=== PATIENT | male | born 1970 | race Caucasian/White ===

== ENCOUNTER 2024-06-12 14:25 | Emergency (ER) | payer BC, SELFPAY ==
[2024-06-12 14:33] VITALS: BP 153/94
--- NOTE | 2024-06-12 14:35 | ED.GENMED ---
ED Provider Triage
-
Patient seen by provider in Triage?: Seen in Triage
Attestation: A medical screening examination has been initiated by a qualified medical provider. Based on the assessment performed at this time, it has been determined that an emergent medical condition may exist and the patient has been informed
that further medical evaluation and possible additional diagnostic testing may be needed.
HPI: 53-year-old male 11 AM today developed left side abdominal pain that now radiates down into the left groin. And also the left flank. Feels nauseous but has not vomited. Denies fever or chills.
Pain now 12/15. Took Aleve at 11 a.m
GENERAL: Alert , in no apparent distress
EYE: No visual abnormalities.
NECK: Trachea midline
ENT: No visible abnormalities.
LUNGS: No acute respiratory distress
NEUROLOGICAL: Alert and oriented
SKIN: Skin intact. No visible changes.
MUSCULOSKELETAL: Moving extremities normally
PSYCH: Normal and appropriate interaction.
This is a medical evaluation conducted in person to initiate diagnostic evaluation and provide initial therapeutics. Please see further documentation by the treating clinician.
History of Present Illness
General
Chief Complaint: Abdominal Pain
Source: patient and spouse
Exam Limitations: none
Time Seen by Provider: 06/12/24 15:30
Nursing documentation reviewed up to this point in time: agreed with
History of Present Illness
History of Present Illness:
53-year-old male hx HTN, IBS states 11 AM today developed left side abdominal pain that now radiates down into the left groin. And also the left flank. Feels nauseous but has not vomited. Denies fever or chills.
Pain now 12/15. Took Aleve at 11 a.m
Past History
Past History
ED Past Medical History: HTN and Other (IBS)
ED Past Surgical History: None
Social History
Tobacco: Non-smoker
Alcohol: Occasional
Personal:
Review of Systems
Review of Systems
Allergies reviewed?: Yes
All Other Systems: ROS reviewed and negative except as documented in HPI and ROS
Constitutional: Denies fever
Cardiac: Denies chest pain
ABD/GI: Reports abdominal pain, nausea and vomiting
: Reports flank pain
Musculoskeletal: Reports no symptoms
Skin: Reports no symptoms
Neurological: Reports no symptoms
Phy Exam
Physical Exam
Physical Exam:
GENERAL: Mild distress due to pain. A&Ox3.
CONSTITUTIONAL: Afebrile.
EYES: clear, conjunctivae normal
ENMT: moist mucus membranes, Pharynx nl
RESPIRATORY: Regular respirations, nonlabored, lungs clear.
CARDIOVASCULAR: Regular rate and rhythm, no murmurs, no rubs.
GI: Soft, nontender, normal BS. L flank tender to percussion.
MUSCULOSKELETAL: Moves with ease. Well perfused.
SKIN: Warm, dry, pink
PSYCH: Normal mood and affect. Well kept, interactive and appropriate
NEUROLOGIC: Awake, alert and oriented. No focal neurological deficits
Course
Orders/Labs/Results
Orders:
Orders
06/12/24 14:36
CT Abd/pel Without Iv Or Oral Urgent
Comment:
Reason For Exam: L flank pain
06/12/24 14:41
Complete Blood Count/With Diff Urgent
Comprehensive Metabolic Panel Urgent
Lipase Urgent
06/12/24 15:25
Ondansetron Orally Disint [Zofran Odt (Orally Disintegrating)] 4 mg PO NOW STA
06/12/24 15:30
0.9% Sodium Chloride 1000 ml [Nss] 1,000 ml IV BOLUS
Ketorolac [Toradol] 15 mg IV NOW STA
06/12/24 15:53
HYDROmorphone [Dilaudid] 0.5 mg IV NOW STA
06/12/24 16:41
Urinalysis Reflex To Culture Urgent
Date Specimen was Collected: 06/12/24
Time Specimen was Collected: 16:39
Urine Microscopic Reflex Cult Urgent
Abnormal Lab Results
06/12/24 06/12/24
14:41 16:41
MPV 10.5 H fL
(7.4-10.4)
Glucose 108 H mg/dl
(70-99)
Total Bilirubin 1.8 H mg/dl
(0.2-1.3)
ALT 51 H U/L
(0-50)
Ur Occult Blood Reflex 4+ A
(Negative)
Urine RBC 70-80 A /HPF
(0-2)
Urine Bacteria (Reflex) Few A
(Negative)
06/12/24 14:41
06/12/24 14:41
Vital Signs
Initial and Last Documented VS:
Initial Vital Signs
Temp Pulse Resp BP Pulse Ox
98.2 F 85 16 153/94 98
06/12/24 14:33 06/12/24 14:33 06/12/24 14:33 06/12/24 14:33 06/12/24 14:33
Last Documented Vital Signs
Temp Pulse Resp BP Pulse Ox
98.2 F 85 16 153/94 98
06/12/24 14:33 06/12/24 14:33 06/12/24 14:33 06/12/24 14:33 06/12/24 14:33
MDM/Problems Addressed
MDM/Problems Addressed:
53-year-old male 11 AM today developed left side abdominal pain that now radiates down into the left groin. And also the left flank. Feels nauseous but has not vomited. Denies fever or chills.
Pain now 6/10. Took Aleve at 11 a.m
Afebrile, appears mildly uncofmortable
3:10 p.m.
Pt vomiting in WR.
Brought to room P-2. Zofran given
3:35 p.m.
Pt more calm, states pain is 5/5.
CAT scan abdomen pelvis radiology report read: IMPRESSION:
Approximate 3-4 mm calculus in the distal left ureter, just proximal to the left ureterovesical junction with mild left hydroureteronephrosis.
Small nonobstructing left renal calculus.
1.8 cm posterior exophytic left renal lesion not compatible with a simple cyst, either representing a complex cyst or solid mass, cannot be differentiated on the basis of this unenhanced study. Suggest CT Abdomen without and with intravenous
contrast for more complete evaluation.
Hepatosplenomegaly with likely mild diffuse fatty liver.
copy of CT scan report given to pt. He states he's aware of the lesion and it has not changed, being monitored.
6:20 p.m.
U/A without infection
Pt feeling much better, pain free
Stable for discharge
*Critical Care Note
Total Time (30-74mins, 75-104mins- exclusive of procedures): Not Applicable
ED Attending Note
-
Portions of this chart may have been created with voice recognition software.� Occasional wrong word or��sound alike� substitutions may have occurred due to the inherent limitations of voice recognition software.
Discharge Plan
Departure
Patient Disposition: Home (Routine Discharge)
Date of Disposition: 06/12/24
Time of Disposition: 18:30
Patient with high blood pressure during this ER visit?: No
Condition: Good
Discharge Problem:
Calculus of distal left ureter
Instructions: Kidney Stones (DC)
Prescriptions:
No Action
oxycodone 5 mg capsule
5 mg PO Q6H PRN (Reason: Pain) Qty: 10 0RF
Referrals:
Renzo Allred Jr., MD [Active] - As needed
Megan Persaud MD [Family Provider] -
Activity Restrictions/Additional Instructions:
As we discussed, you may follow-up with your primary doctor next week.
Strain your urine and if you pass the stone keep in the container provided
I have provided you with the name of the urologist if needed for follow-up
Interventions
Interventions:
*Risk Screen - Suicide Last Done: 06/12/24 14:33
*Neglect/Abuse Screening Last Done: 06/12/24 14:33
*Nursing Disposition Last Done: 06/12/24 18:45
KM-Wgopws-Xmskulfjeu Assessment Last Done: 06/12/24 15:39
Discharge Date and Time
Discharge Date/Time: 06/12/24 18:46
Print Language: STATELESS
[2024-06-12 14:58] LABS: % Basophils 0.6 % (0-2); % Eosinophils 1.1 % (0-6); % Immature Granulocytes 0.4 % (0-0.5); % Lymphocytes 22.5 % (20.5-51.1); % Monocytes 6.1 % (1.7-9.3); % Neutrophils 69.3 % (42.2-75.2); Absolute Basophils 0.1 10^3/uL (0-0.2); Absolute Eosinophils 0.1 10^3/uL (0-0.7); Absolute Lymphocytes 1.8 10^3/uL (1.2-3.4); Absolute Monocytes 0.5 10^3/uL (0.1-0.6); Absolute Neutrophils 5.7 10^3/uL (1.4-6.5); Hematocrit 46.8 % (39.0-52.0); Hemoglobin 16.1 g/dL (13.0-18.0); Mean Corp Hgb Conc. 34.4 g/dL (33.0-37.0); Mean Corpuscular Hgb 29.5 pg (27.0-31.0); Mean Corpuscular Volume 85.7 fL (80.0-94.0); Mean Platelet Volume 10.5 fL (7.4-10.4); Nucleated Red Blood Cells % 0 % (-); Platelet Count 213 10^3/uL (130-400); Red Blood Cell Count 5.46 10^6/uL (4.70-6.10); Red Cell Dist. Width 12.3 % (11.5-14.5); White Blood Cell Count 8.2 10^3/uL (4.8-10.8)
[2024-06-12 15:04] LABS: ALT (SGPT) 51 U/L (0-50); AST (SGOT) 31 U/L (17-59); Albumin 4.8 g/dl (3.5-5.0); Alkaline Phosphatase 60 U/L (38-126); Blood Urea Nitrogen 11 mg/dl (9-20); Calcium 9.4 mg/dl (8.4-10.2); Carbon Dioxide 28 mmol/L (22-30); Chloride 103 mmol/L (98-107); Glucose 108 mg/dl (70-99); Lipase 91 U/L (23-300); Potassium 4.2 mmol/L (3.5-5.1); Sodium 142 mmol/L (135-145); Total Bilirubin 1.8 mg/dl (0.2-1.3); Total Protein 7.2 g/dl (6.3-8.2); eGFR > 60.00
[2024-06-12] MEDS: ZOFRAN ODT (ORALLY DISINTEGRATING) 4 MG PO (15:25)
[2024-06-12] MEDS: TORADOL 15 MG IV (15:43)
[2024-06-12] MEDS: NSS 1000 IV (15:44)
[2024-06-12] MEDS: DILAUDID 0.5 MG IV (15:55)
[2024-06-12 16:47] LABS: Urine Albumin Negative (Neg - Trace); Urine Bilirubin Negative (Negative); Urine Character Clear (Clear); Urine Color Yellow; Urine Glucose Negative (Negative); Urine Ketone Negative (Negative); Urine Leukocyte Negative (Negative); Urine Nitrite Negative (Negative); Urine Occult Blood 4+ (Negative); Urine Urobilinogen Negative (Neg - 1+)
[2024-06-12 17:04] LABS: Urine Squamous Cell 0-2 /LPF (Few)
[2024-06-12 17:05] LABS: Urine Bacteria Few (Negative); Urine Red Blood Cell 70-80 /HPF (0-2); Urine White Cell 0-2 /HPF (0-5)
== END 2024-06-12 18:46 | disposition home or self-care (01) ==
LOC: EMR 14:25
PROVIDERS: Registered Nurse; EMERGENCY PHYSICIAN Student in an Organized Health Care Education/Training Program; FAMILY PHYSICIAN Internal Medicine
DX: N13.2 Hydronephrosis with renal and ureteral calculous obstruction (principal); I10 Essential (primary) hypertension
CPT/HCPCS: 99284; 96374; 96375; 96361; 74176; 80053; 81003; 81015; 83690; 85025

== ENCOUNTER 2024-06-13 09:49 | Emergency (ER) | payer BC, SELFPAY ==
[2024-06-13 09:51] VITALS: BP 143/97
--- NOTE | 2024-06-13 11:18 | ED.GENMED ---
History of Present Illness
General
Chief Complaint: Flank Pain
Source: patient
Exam Limitations: none
Time Seen by Provider: 06/13/24 11:18
Nursing documentation reviewed up to this point in time: agreed with
History of Present Illness
History of Present Illness:
Patient is a 53-year-old presents to the ER for evaluation. Patient was seen here yesterday and diagnosed with kidney stone. Patient reports he felt fine yesterday when he left however pain has intensified not relieved with Aleve. He complains
now of pain mostly moving to his left lower groin. He denies any fever chills. He was nauseous with this pain with did not vomit today.
Past History
Past History
ED Past Medical History: HTN and Other (IBS)
ED Past Surgical History: None
Social History
Tobacco: Non-smoker
Alcohol: Occasional
Personal:
Review of Systems
Review of Systems
Allergies reviewed?: Yes
Phy Exam
General Physical Exam
General Presentation: no apparent distress
General age: appears stated age
General Skin: warm and cool
General Habitus: normal
General Mental: alert
General Hydration: appears well hydrated
Gastrointestinal Exam
Gastrointestinal Exam: non tender and soft
Neurological Exam
Neurological Exam: alert and oriented x3
Musculoskeletal Exam
Musculoskeletal Exam: full ROM
Skin Exam
Skin Exam: normal color and warm/dry
Psychiatric Exam
Psychiatric Exam: normal mood/affect
Course
Orders/Labs/Results
Orders:
Orders
06/13/24 11:35
IV Insert/Care/Rem.- Treatment PRN
0.9% Sodium Chloride 1000 ml [Nss] 1,000 ml IV BOLUS
06/13/24 11:38
Ondansetron Injectable [Zofran] 4 mg IV NOW STA
06/13/24 12:02
HYDROmorphone [Dilaudid] 1 mg .ROUTE .STK-MED ONE
HYDROmorphone [Dilaudid] 1 mg IV NOW STA
06/13/24 12:08
Complete Blood Count/With Diff Urgent
Comprehensive Metabolic Panel Urgent
Abnormal Lab Results
06/13/24
12:08
MPV 11.0 H fL
(7.4-10.4)
Absolute Neuts (auto) 6.7 H 10^3/uL
(1.4-6.5)
Absolute Monos (auto) 0.7 H 10^3/uL
(0.1-0.6)
Lymphocytes % 18.1 L %
(20.5-51.1)
Total Bilirubin 2.1 H mg/dl
(0.2-1.3)
06/13/24 12:08
06/13/24 12:08
Vital Signs
Initial and Last Documented VS:
Initial Vital Signs
Temp Pulse Resp BP Pulse Ox
98.4 F 81 16 143/97 98
06/13/24 09:51 06/13/24 09:51 06/13/24 09:51 06/13/24 09:51 06/13/24 09:51
Last Documented Vital Signs
Temp Pulse Resp BP Pulse Ox
98.4 F 81 23 163/94 95
06/13/24 09:51 06/13/24 11:45 06/13/24 13:15 06/13/24 13:00 06/13/24 13:15
MDM/Problems Addressed
Differential Diagnosis Includes:
not limited to renal colic
MDM/Problems Addressed:
Patient is a 53-year-old male that was diagnosed with 3-4 mm calculus in the distal left ureter just proximal to the left UVJ with mild left hydroureteronephrosis yesterday here in the ER. He presents back today with worsening pain that started
this morning. He took naproxen this morning and nothing additional but reports that did not relieve his symptoms. He reports pain comes in waves. CAT scan also reported a 1.8 cm left renal lesion which is not new.
12pm: Patient complaining of increasing pain evaluate reports very uncomfortable he did take Aleve prior to coming to the ER will give IV Dilaudid and reevaluate
1417: Patient feeling much better feels comfortable going home. Does not require re- imaging. Patient has Aleve at home however will DC with narcotic pain medication as needed. He is to call urology Saturday morning.
*Pulse Oximetry
Patient hypoxic: no
*Critical Care Note
Total Time (30-74mins, 75-104mins- exclusive of procedures): Not Applicable
Data Reviewed
Review of Other/Old Records Reveals: Radiology Studies and Other (Imaging and ER chart reviewed from yesterday)
ED Attending Note
-
Portions of this chart may have been created with voice recognition software.� Occasional wrong word or��sound alike� substitutions may have occurred due to the inherent limitations of voice recognition software.
Discharge Plan
Departure
Patient Disposition: Home (Routine Discharge)
Date of Disposition: 06/13/24
Time of Disposition: 14:18
Patient with high blood pressure during this ER visit?: Yes
Covid-19: Not Applicable
Discharge Problem:
Renal colic
Instructions: Kidney Stones (DC), BLOOD PRESSURE, Narcotic Pain Medication
Prescriptions:
New
oxycodone 5 mg capsule
5 mg PO Q6H PRN (Reason: Pain) Qty: 10 0RF
Referrals:
Renzo Allred Jr., MD [Active] -
Megan Persaud MD [Family Provider] -
Activity Restrictions/Additional Instructions:
Stay well-hydrated
As discussed you may take Tylenol or Aleve or ibuprofen at home ;however if needed a prescription for narcotic medication, oxycodone was sent to your pharmacy. Take as directed. This medication is a narcotic no driving or drinking alcohol while
taking medication. This medication may also cause constipation please take [id number] laxative while taking this. Follow-up with urology call Saturday morning to make an appointment return if any worsening of symptoms.
Interventions
Interventions:
*Risk Screen - Suicide Last Done: 06/13/24 09:55
*Neglect/Abuse Screening Last Done: 06/13/24 09:55
*ED COVID-19 Vaccine History Last Done: 06/13/24 09:55
YN-Sjtrer-Tibwfnnmae Assessment Last Done: 06/13/24 12:10
ED-Male Genitourinary Assessment Last Done: 06/13/24 12:10
Discharge Date and Time
Print Language: BELARUSIAN
[2024-06-13 11:26] VITALS: BP 147/88
[2024-06-13] MEDS: ZOFRAN 4 MG IV (12:03)
[2024-06-13] MEDS: DILAUDID 1 MG IV (12:03)
[2024-06-13] MEDS: NSS 1000 IV (12:05)
[2024-06-13 12:07] VITALS: BP 150/90
[2024-06-13 12:37] LABS: ALT (SGPT) 42 U/L (0-50); AST (SGOT) 28 U/L (17-59); Albumin 4.4 g/dl (3.5-5.0); Alkaline Phosphatase 60 U/L (38-126); Blood Urea Nitrogen 14 mg/dl (9-20); Calcium 9.1 mg/dl (8.4-10.2); Carbon Dioxide 26 mmol/L (22-30); Chloride 103 mmol/L (98-107); Glucose 97 mg/dl (70-99); Potassium 4.1 mmol/L (3.5-5.1); Sodium 141 mmol/L (135-145); Total Bilirubin 2.1 mg/dl (0.2-1.3); Total Protein 6.7 g/dl (6.3-8.2); eGFR > 60.00
[2024-06-13 12:38] LABS: % Basophils 0.3 % (0-2); % Eosinophils 0.4 % (0-6); % Immature Granulocytes 0.4 % (0-0.5); % Lymphocytes 18.1 % (20.5-51.1); % Neutrophils 72.8 % (42.2-75.2); Absolute Lymphocytes 1.7 10^3/uL (1.2-3.4); Absolute Monocytes 0.7 10^3/uL (0.1-0.6); Absolute Neutrophils 6.7 10^3/uL (1.4-6.5); Hematocrit 44.8 % (39.0-52.0); Hemoglobin 15.5 g/dL (13.0-18.0); Mean Corp Hgb Conc. 34.6 g/dL (33.0-37.0); Mean Corpuscular Hgb 29.4 pg (27.0-31.0); Nucleated Red Blood Cells % 0 % (-); Platelet Count 204 10^3/uL (130-400); Red Blood Cell Count 5.27 10^6/uL (4.70-6.10); Red Cell Dist. Width 12.2 % (11.5-14.5); White Blood Cell Count 9.2 10^3/uL (4.8-10.8)
[2024-06-13 13:00] VITALS: BP 163/94
== END 2024-06-13 15:25 | disposition home or self-care (01) ==
LOC: EMR 09:49
PROVIDERS: Nurse Practitioner; EMERGENCY PHYSICIAN Emergency Medicine; FAMILY PHYSICIAN Internal Medicine
DX: N13.2 Hydronephrosis with renal and ureteral calculous obstruction (principal); I10 Essential (primary) hypertension
CPT/HCPCS: 96374; 96375; 99284; 80053; 85025

== ENCOUNTER → 2024-12-04 06:56 | Outpatient (REF) | payer BC, SELFPAY | LOC: MRI 3T 06:56 | PROVIDERS: ATTENDING PHYSICIAN Nurse Practitioner Adult Health; FAMILY PHYSICIAN Internal Medicine | DX: M48.062 Spinal stenosis, lumbar region with neurogenic claudication (principal) | CPT/HCPCS: 72148 ==